=== PATIENT | female | born 1935 | race Caucasian/White ===

== ENCOUNTER 2017-07-28 12:03 | Inpatient (IN) | payer OTHER, MEDICAID ==
--- NOTE | 2017-07-28 12:46 | NUR ---
TO LOBBY, NO DISTRESS NOTED
--- NOTE | 2017-07-28 13:54 | NUR ---
PT PRESENTS TO THE ED WITH THE COMPLAINT OF RUQ ABDOMINAL PAIN WHICH HAS BEEN INTERMITTENT X 2 WEEKS. PT DENIES ANY N/V/D. PT ALSO HAS A COMPLAINT OF INTERMITTENT PRESSURE LIMKE HEADACHE X 2 WEEKS. NO FACIAL DROOP. 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 MSE COMPLETED BY DR. STROUD.
--- NOTE | 2017-07-28 14:10 | NUR ---
LAB AT BEDSIDE FOR BLOOD DRAW AND BLOOD CULTURES
[2017-07-28] MEDS ORDERED: LIPI20 PO (14:15)
--- NOTE | 2017-07-28 14:27 | NUR ---
VICE PRESIDENT AT BEDSIDE FOR ORDERED EXAM
[2017-07-28 14:45] LABS: BASOPHIL % 0.4 % (0-2); PLATELET COUNT 213 x10^3mcL (130-400); RED CELL DISTRIBUTION WIDTH 13.1 % (11.5-14.5)
[2017-07-28 15:08] LABS: BILIRUBIN TOTAL 0.2 mg/dL (0.20-1.00); TOTAL PROTEIN, SERUM 7.9 g/dL (6.4-8.2)
[2017-07-28 15:17] LABS: CALCIUM 9.2 mg/dL (8.5-10.1); CARBON DIOXIDE 28.2 mmol/L (21-32); CHLORIDE SERUM 106 mmol/L (98-107); GLUCOSE SERUM 97 mg/dL (74-106); POTASSIUM SERUM 4.4 mmol/L (3.5-5.1); SODIUM SERUM 140 mmol/L (136-145)
[2017-07-28 15:21] LABS: ALBUMIN 3.5 g/dL (3.4-5.0); ALKALINE PHOSPHATASE 129 U/L (46-116); ALT/SGPT 16 U/L (14-59); AST/SGOT 15 U/L (15-37); LIPASE 157 IU/L (73-393)
--- NOTE | 2017-07-28 15:39 | NUR ---
DR. STROUD AT BEDSIDE FOR PLAN OF CARE/
[2017-07-28] MEDS ORDERED: METOPROLOL TART50 MG PO (15:59)
--- NOTE | 2017-07-28 16:11 | NUR ---
PT REPORTS PAIN LOWERED TO 5/10 AFTER [employer] OF SLOW IVP FENTANYL, PLEASE SEE EMAR, PT RESTING IN BED IN A POSITION OF COMFORT WITH DAUGHTER AT BEDSIDE, MRSA COLLECTED AND SENT TO LAB, PT ON FULL MONITORS, RESP EVEN AND UNLABORED, IN NO ACUTE DISTRESS, CALL LIGHT WITHIN REACH, WILL CONTINUE TO MONITOR
--- NOTE | 2017-07-28 16:26 | NUR ---
REPORT GIVEN TO [facility] TELE FLOOR TO ASSUME CARE OF PT AFTER TRANSPORT
--- NOTE | 2017-07-28 16:59 | NUR ---
PLAN OF CARE DISCUSSED BY DR. STROUD WITH PT AND PTS DAUGHTER AT BEDSIDE
[2017-07-28 17:40] VITALS: BP 175/73
--- NOTE | 2017-07-28 17:45 | NUR ---
PATIENT ARRIVED TO FLOOR FROM ED. DR. ROSS IN TO SPEAK TO FAMILY AT THIS TIME. PATIENT WOULD LIKE TO GO HOME. DR. SOLIS EXPLAINED RISKS OF GOING HOME AMA. PATIENT AND FAMILY VERBALIZE UNDERSTANDING AND SIGN FORM.
[2017-07-28 17:53] LABS: FREE T4 1.1 ng/dL (0.76-1.46); FREE THYROXINE INDEX 2.7 ug/dL (1.4-4.5); T4(THYROXINE) 7.4 ug/dL (4.7-13.3)
[2017-07-28 18:13] LABS: CHOLESTEROL/HDL RATIO 2.6; MAGNESIUM 2.2 mg/dL (1.8-2.4); PHOSPHOROUS 3.4 mg/dL (2.5-4.9)
[2017-07-29 03:23] LABS: T3 TOTAL 0.77 ng/mL
== END 2017-07-28 20:01 | disposition left against medical advice (07) | DRG 444 ==
LOC: ED 12:03 → DU 15:51
PROVIDERS: Emergency Medicine; ADMIT Family Medicine Sports Medicine
DX: K80.20 Calculus of gallbladder without cholecystitis without obstruction (principal); N17.0 Acute kidney failure with tubular necrosis; I16.0 Hypertensive urgency; E78.5 Hyperlipidemia, unspecified; K76.0 Fatty (change of) liver, not elsewhere classified
CPT/HCPCS: 83880; 84439; J1885; J2405; J3010; J7030; Q0092

== ENCOUNTER 2019-08-20 11:37 | Emergency (ER) | payer OTHER, MEDICAID ==
[~2019-08-20] VITALS: Ht 157.5 cm; Wt 63.5 kg
[~2019-08-20 11:37] MED LIST: LIPI20 PO; METOPROLOL TART50 MG PO
[2019-08-20 12:00] VITALS: Ht 157.5 cm; Wt 63.5 kg
[2019-08-20 13:16] LABS: CALCIUM 10.2 mg/dL (8.5-10.1); CARBON DIOXIDE 26.9 mmol/L (21-32); CHLORIDE SERUM 100 mmol/L (98-107); CREATININE SERUM 1.1 mg/dL (0.6-1.0); GLUCOSE SERUM 110 mg/dL (74-106); POTASSIUM SERUM 3.8 mmol/L (3.5-5.1); SODIUM SERUM 136 mmol/L (136-145)
[2019-08-20 13:21] LABS: ALBUMIN 3.8 g/dL (3.4-5.0); ALKALINE PHOSPHATASE 134 U/L (46-116); ALT/SGPT 21 U/L (14-59); AST/SGOT 18 U/L (15-37); BILIRUBIN TOTAL 0.4 mg/dL (0.20-1.00); LIPASE 122 IU/L (73-393)
[2019-08-20 13:24] LABS: TOTAL PROTEIN, SERUM 8.4 g/dL (6.4-8.2)
[2019-08-20 13:38] LABS: microscopic required? YES; urine erythrocyte 1+ (NEGATIVE)
[2019-08-20 14:23] LABS: BASOPHIL % 0.4 % (0-2); PLATELET COUNT 254 x10^3mcL (130-400)
[2019-08-20 15:27] VITALS: BP 128/53
== END 2019-08-20 15:27 | disposition home or self-care (01) ==
LOC: ED 11:37
PROVIDERS: Emergency Medicine
DX: R10.817 Generalized abdominal tenderness (principal); E86.0 Dehydration; R19.7 Diarrhea, unspecified; R11.0 Nausea; R68.83 Chills (without fever); R35.0 Frequency of micturition; R34 Anuria and oliguria; I10 Essential (primary) hypertension; E78.00 Pure hypercholesterolemia, unspecified; Z90.89 Acquired absence of other organs; Z90.49 Acquired absence of other specified parts of digestive tract; Z98.890 Other specified postprocedural states; Z88.0 Allergy status to penicillin
CPT/HCPCS: 87804; J2405; J3490; J7030; Q0092

== ENCOUNTER 2019-08-22 00:48 | Emergency (ER) | payer OTHER, MEDICAID ==
[~2019-08-22] VITALS: Ht 157.5 cm; Wt 64.0 kg
[2019-08-22 00:54] VITALS: Ht 157.5 cm; Wt 64.0 kg
[2019-08-22 01:47] LABS: ALBUMIN 3.5 g/dL (3.4-5.0); ALKALINE PHOSPHATASE 130 U/L (46-116); ALT/SGPT 16 U/L (14-59); AST/SGOT 20 U/L (15-37); BILIRUBIN TOTAL 0.29 mg/dL (0.20-1.00); CALCIUM 9.2 mg/dL (8.5-10.1); CARBON DIOXIDE 27 mmol/L (21-32); CHLORIDE SERUM 101 mmol/L (98-107); CREATININE SERUM 1.4 mg/dL (0.6-1.0); GLUCOSE SERUM 113 mg/dL (74-106); POTASSIUM SERUM 3.5 mmol/L (3.5-5.1); SODIUM SERUM 139 mmol/L (136-145); TOTAL PROTEIN, SERUM 7.9 g/dL (6.4-8.2)
[2019-08-22 01:57] LABS: BASOPHIL % 0.5 % (0-2); PLATELET COUNT 255 x10^3mcL (130-400); RED CELL DISTRIBUTION WIDTH 13.5 % (11.5-14.5)
[2019-08-22 02:10] VITALS: BP 179/66
== END 2019-08-22 03:04 | disposition home or self-care (01) ==
LOC: ED 00:48
PROVIDERS: Emergency Medicine
DX: K21.9 Gastro-esophageal reflux disease without esophagitis (principal); K59.00 Constipation, unspecified; I10 Essential (primary) hypertension; Z88.0 Allergy status to penicillin; Z86.73 Personal history of transient ischemic attack (TIA), and cerebral infarction without residual deficits
CPT/HCPCS: 36415; Q0092